=== PATIENT | female | born 1960 | race Caucasian/White ===

== ENCOUNTER → 2019-05-25 | Outpatient (REF) | payer OTHER | LOC: M LAB REF 15:29 | PROVIDERS: ATTEND Otolaryngology | DX: H60.8X1 Other otitis externa, right ear (principal) ==

== ENCOUNTER 2020-12-22 10:03 | Emergency (ER) | payer BC, OTHER ==
[~2020-12-22] VITALS: Ht 149.9 cm; Wt 50.7 kg
[2020-12-22] MEDS ORDERED: LOSA100T50 (10:16)
[2020-12-22] MEDS ORDERED: BYST10TA2 (10:16)
[2020-12-22] MEDS ORDERED: OMEP-218 (10:16)
[2020-12-22] MEDS ORDERED: NS 1,000 ML IV ONE (11:40)
[2020-12-22] MEDS ORDERED: MORPHINE 4 MG/ML 1ML VIAL/SYRINGE (J2270) IV ONE ×2 (11:40→13:20)
[2020-12-22] MEDS ORDERED: ONDANSETRON 4MG/2ML VIAL IV ONE (11:40)
[2020-12-22 12:17] LABS: BASO # 0.1 10^3/uL (0.0-0.2); BASO % 0.6 % (0.0-1.0); EOS # 0.2 10^3/uL (0.0-0.5); EOS % 2.9 % (0.0-3.0); HEMATOCRIT 37.7 % (36.0-47.0); HEMOGLOBIN 12.6 g/dl (12.0-15.5); LYMPH # 1.9 10^3/uL (1.5-5.0); LYMPH % 22.3 % (24.0-44.0); MEAN CORPUSCULAR HEMOGLOBIN 29.1 pg (27.0-33.0); MEAN CORPUSCULAR HGB CONC 33.4 g/dl (32.0-36.5); MEAN CORPUSCULAR VOLUME 87.1 fl (80.0-96.0); MONO # 0.9 10^3/uL (0.0-0.8); MONO % 11.2 % (2.0-8.0); NEUTROPHILS # 5.3 10^3/uL (1.5-8.5); NEUTROPHILS % 62.5 % (36.0-66.0); PLATELET COUNT, AUTOMATED 299 10^3/uL (150-450); RED BLOOD COUNT 4.33 10^6/uL (4.00-5.40); WHITE BLOOD COUNT 8.4 10^3/uL (4.0-10.0)
[2020-12-22 12:36] LABS: ERYTHROCYTE SEDIMENTATION RATE 27 mm/hr (0-30)
[2020-12-22] MEDS ORDERED: ISOVUE-370 76% 100ML VIAL As Ordered ONE (12:36)
[2020-12-22 12:50] LABS: ALBUMIN 3.2 GM/DL (3.2-5.2); ALT/SGPT 17 U/L (12-78); BILIRUBIN,DIRECT < 0.1 MG/DL (0.0-0.2); BILIRUBIN,TOTAL 0.2 MG/DL (0.2-1.0); LIPASE 6859 U/L (73-393); TOTAL PROTEIN 6.9 GM/DL (6.4-8.2)
--- NOTE | 2020-12-22 14:38 | REP ---
INDICATION: pancreatitis, epigastric pain, 20lb weight loss last 4-5 mo. COMPARISON: None. TECHNIQUE: Standard helical technique after the intravenous administration of 100 cc Isovue 370 FINDINGS: dependent subsegmental atelectatic changes are suspected in the right lung base. There no pleural or pericardial effusions. There is mild intrahepatic ductal dilatation likely secondary to the patient's post cholecystectomy state. There is fluid in the lesser sac and anterior pararenal space. In the right posterior pararenal space there is a round 1.6 cm sized low-density well demarcated area which has water density Hounsfield unit readings. There is a 1.4 cm sized low-density nodule in the anterior limb of the right adrenal gland. The spleen, left adrenal gland, and kidneys are within normal limits. The abdominal aorta and para-aortic regions are within normal limits. There is generalized mesenteric congestion and a small amount of free fluid in the pelvis. There is no evidence of free air. Bone window technique throughout the examination shows chronic spinal degenerative changes. IMPRESSION: 1. There is evidence of pancreatitis and possible pseudocyst formation as described above. Follow-up is recommended. 2. Fluid collections as described above. 3. Intrahepatic ductal dilatation likely secondary to the post cholecystectomy state, however, there are no priors comparison. Follow-up is recommended. 4. Other findings as described above. <Electronically signed by Josh Smith > 12/22/20 [id number]
[2020-12-22] MEDS ORDERED: TRAM50TA2 PO (15:31)
[2020-12-22] MEDS ORDERED: ONDA4TAB6 PO (15:31)
[2020-12-22 15:46] VITALS: BP 143/65
== END 2020-12-22 15:52 | disposition home or self-care (01) ==
LOC: M ED 10:03
DX: K86.1 Other chronic pancreatitis (principal); I10 Essential (primary) hypertension; F17.210 Nicotine dependence, cigarettes, uncomplicated; Z88.0 Allergy status to penicillin
CPT/HCPCS: 74177; 80047; 80076; 83690; 85025; 85652; 86140; 96361; 96374; 96375; 96376; 99284; J2270; J2405; Q9967

== ENCOUNTER → 2021-02-08 | Outpatient (CLI) | payer BC, OTHER ==
[~2021-02-08] MED LIST: BYST10TA2; HYDR-4571 PO; LOSA100T50 PO; NEBI10TA PO; OMEP-218 PO; ONDA4TAB6 PO; TRAM50TA2 PO
== END ==
LOC: M LABSMTC 11:12
PROVIDERS: ATTEND Anesthesiology
DX: Z01.818 Encounter for other preprocedural examination (principal); Z11.52 Encounter for screening for COVID-19

== ENCOUNTER 2021-02-10 13:39 | Day surgery (SDC) | payer BC, OTHER ==
[~2021-02-10] VITALS: Ht 149.9 cm; Wt 45.7 kg
[~2021-02-10 13:39] MED LIST changes: +LOSA100T45 PO; -LOSA100T50 PO; +LR 1,000 ML IV ONE; +OMEP-173 PO; -OMEP-218 PO
[2021-02-10] MEDS ORDERED: propofoL 200 MG/20 ML VIAL As Ordered ONE (15:53)
[2021-02-10] MEDS ORDERED: fentaNYL 100 MCG/2 ML INJECTION As Ordered ONE (15:53)
[2021-02-10] MEDS ORDERED: LIDOCAINE 2% 100MG/5ML SDV (FOR ANES.) As Ordered ONE (15:53)
[2021-02-10] MEDS ORDERED: SIMETHICONE 40MG/0.6ML DROPS 30ML As Ordered ONE (16:15)
[2021-02-10 16:50] VITALS: BP 168/76
== END 2021-02-10 16:53 | disposition home or self-care (01) ==
LOC: M SDC 13:39
PROVIDERS: ATTEND Internal Medicine Gastroenterology
DX: Z12.11 Encounter for screening for malignant neoplasm of colon (principal); K64.8 Other hemorrhoids; K57.30 Diverticulosis of large intestine without perforation or abscess without bleeding; K29.70 Gastritis, unspecified, without bleeding; K63.4 Enteroptosis; I10 Essential (primary) hypertension; R12 Heartburn; F17.200 Nicotine dependence, unspecified, uncomplicated; Z88.0 Allergy status to penicillin; Z79.899 Other long term (current) drug therapy
CPT/HCPCS: 43239; 45378; 88305; J3010

== ENCOUNTER 2021-03-12 18:25 | Inpatient (IN) | payer BC, OTHER ==
[~2021-03-12] VITALS: Ht 149.9 cm; Wt 46.2 kg
[~2021-03-12 18:25] MED LIST changes: -LR 1,000 ML IV ONE
[2021-03-12] MEDS ORDERED: POLY17PO18 PO (18:38)
[2021-03-12] MEDS ORDERED: GABA-1171 PO (18:38)
[2021-03-12] MEDS ORDERED: FERR32TA PO (18:38)
[2021-03-12] MEDS ORDERED: [UNRECOGNIZED DRUG - CODE] PO (18:38)
[2021-03-12] MEDS ORDERED: FURO20TA2 PO (18:38)
[2021-03-12] MEDS ORDERED: ONDANSETRON 4MG/2ML VIAL IV ONE (19:00)
[2021-03-12] MEDS: NS 1,000 ML IV SCH (19:30)
[2021-03-12] MEDS: MORPHINE 4 MG/ML 1ML VIAL/SYRINGE (J2270) IV PRN ×3 (19:31→23:27)
[2021-03-12 19:39] LABS: BASO # 0.1 10^3/uL (0.0-0.2); BASO % 0.4 % (0.0-1.0); EOS % 0.1 % (0.0-3.0); HEMATOCRIT 28.8 % (36.0-47.0); HEMOGLOBIN 9.2 g/dl (12.0-15.5); MEAN CORPUSCULAR HEMOGLOBIN 27.2 pg (27.0-33.0); MEAN CORPUSCULAR HGB CONC 31.9 g/dl (32.0-36.5); MEAN CORPUSCULAR VOLUME 85.2 fl (80.0-96.0); MONO % 6.7 % (2.0-8.0); NEUTROPHILS # 23.8 10^3/uL (1.5-8.5); NEUTROPHILS % 85.2 % (36.0-66.0); PLATELET COUNT, AUTOMATED 418 10^3/uL (150-450); RED BLOOD COUNT 3.38 10^6/uL (4.00-5.40)
[2021-03-12 20:02] LABS: ALBUMIN 1.8 GM/DL (3.2-5.2); ALT/SGPT 13 U/L (12-78); BILIRUBIN,TOTAL 0.5 MG/DL (0.2-1.0); BLOOD UREA NITROGEN 9 MG/DL (7-18); CALCIUM LEVEL 7.3 MG/DL (8.5-10.1); CARBON DIOXIDE LEVEL 26 MEQ/L (21-32); CHLORIDE LEVEL 104 MEQ/L (98-107); CREATININE FOR GFR 0.52 MG/DL (0.55-1.30); GLOMERULAR FILTRATION RATE > 60.0 (>51); GLUCOSE, FASTING 90 MG/DL (70-100); LIPASE 3745 U/L (73-393); MAGNESIUM LEVEL 1.3 MG/DL (1.8-2.4); POTASSIUM SERUM 3.8 MEQ/L (3.5-5.1); SODIUM LEVEL 137 MEQ/L (136-145)
[2021-03-12 20:05] LABS: MONO # 1.9 10^3/uL (0.0-0.8)
[2021-03-12] MEDS ORDERED: MAG SULF 1GM/100ML (MAG RUN) 1 GM in IV 1 EA IV ONE ×2 (20:05→21:05)
[2021-03-12] MEDS ORDERED: ISOVUE-370 76% 100ML VIAL As Ordered ONE (20:06)
[2021-03-12] MEDS ORDERED: MOXIFLOXACIN HCL 400 MG in IV 1 EA IV ONE (20:10)
[2021-03-12 20:32] LABS: ETHYL ALCOHOL (ETHANOL) < 0.003 % (0.000-0.010)
[2021-03-12] MEDS ORDERED: HOME MED LIST COMPLETE! XX SCH (21:50)
[2021-03-12 22:02] LABS: RSV AMPLIFICATION NEGATIVE (NEGATIVE)
[2021-03-12] MEDS ORDERED: HEPARIN SOD (PORCINE) 5000UNITS/ML 1ML VIAL/SYRINGE IV ONE (23:05)
[2021-03-12] MEDS ORDERED: HEPARIN DRIP 25,000 UNITS in IV 1 EA IV SCH (23:05)
[2021-03-12 23:29] LABS: ABG BASE EXCESS -1.7 (-2.0-2.0); ABG HCO3 23.5 MEQ/L (22.0-26.0); ABG O2 SATURATION 93.7 % (95.0-99.0); ABG PARTIAL PRESSURE CO2 41.9 mmHg (35.0-45.0); ABG PARTIAL PRESSURE O2 72.1 mmHg (75.0-100.0); ABG TOTAL CO2 24.8 MEQ/L (22.0-29.0); ABG pH (ARTERIAL) 7.367 UNITS (7.350-7.450)
[2021-03-12 23:45] LABS: INR 1.86; PROTHROMBIN TIME 21.9 SECONDS (12.7-14.5)
[2021-03-12 23:47] LABS: PARTIAL THROMBOPLASTIN TIME 59.9 SECONDS (25.9-37.0)
[2021-03-13] VITALS (17 sets, daily range): BP systolic 159–183; BP diastolic 70–86; O2SAT 91–100
[2021-03-13] MEDS ORDERED: HEPARIN SOD (PORCINE) 5000UNITS/ML 1ML VIAL/SYRINGE IV PRN (01:05)
[2021-03-13] MEDS: MORPHINE 4 MG/ML 1ML VIAL/SYRINGE (J2270) IV PRN ×6 (01:13→23:41)
[2021-03-13] MEDS: NS 1,000 ML IV SCH ×3 (01:14→15:35)
[2021-03-13] MEDS: HEPARIN DRIP 25,000 UNITS in IV 1 EA IV SCH (02:03)
[2021-03-13 02:24] LABS: HEMATOCRIT 27.1 % (36.0-47.0); HEMOGLOBIN 8.5 g/dl (12.0-15.5); MEAN CORPUSCULAR HEMOGLOBIN 26.7 pg (27.0-33.0); MEAN CORPUSCULAR HGB CONC 31.4 g/dl (32.0-36.5); MEAN CORPUSCULAR VOLUME 85.2 fl (80.0-96.0); PLATELET COUNT, AUTOMATED 377 10^3/uL (150-450); RED BLOOD COUNT 3.18 10^6/uL (4.00-5.40); WHITE BLOOD COUNT 24.2 10^3/uL (4.0-10.0)
[2021-03-13] MEDS: metroNIDAZOLE 500 MG in IV 1 EA IV SCH ×3 (02:24→18:04)
[2021-03-13] MEDS ORDERED: MORPHINE 4 MG/ML 1ML VIAL/SYRINGE (J2270) As Ordered ONE (02:39)
[2021-03-13] MEDS ORDERED: KETOROLAC 30 MG/ML 1ML VIAL IV ONE ×2 (04:05→13:45)
[2021-03-13 05:39] LABS: HEMATOCRIT 27.4 % (36.0-47.0); HEMOGLOBIN 8.5 g/dl (12.0-15.5); MEAN CORPUSCULAR HEMOGLOBIN 26.4 pg (27.0-33.0); MEAN CORPUSCULAR VOLUME 85.1 fl (80.0-96.0); PLATELET COUNT, AUTOMATED 398 10^3/uL (150-450); RED BLOOD COUNT 3.22 10^6/uL (4.00-5.40); WHITE BLOOD COUNT 22.8 10^3/uL (4.0-10.0)
[2021-03-13 06:07] LABS: ALBUMIN 1.7 GM/DL (3.2-5.2); ALT/SGPT 84 U/L (12-78); BILIRUBIN,TOTAL 0.5 MG/DL (0.2-1.0); BLOOD UREA NITROGEN 8 MG/DL (7-18); CARBON DIOXIDE LEVEL 29 MEQ/L (21-32); CHLORIDE LEVEL 105 MEQ/L (98-107); CREATININE FOR GFR 0.49 MG/DL (0.55-1.30); GLOMERULAR FILTRATION RATE > 60.0 (>51); GLUCOSE, FASTING 88 MG/DL (70-100); POTASSIUM SERUM 3.3 MEQ/L (3.5-5.1); SODIUM LEVEL 140 MEQ/L (136-145); TOTAL PROTEIN 5.4 GM/DL (6.4-8.2)
[2021-03-13] MEDS: CIPROFLOXACIN 400 MG in IV 1 EA IV SCH ×2 (07:33→20:06)
[2021-03-13] MEDS ORDERED: FUROSEMIDE 20 MG TAB PO SCH (09:00)
[2021-03-13] MEDS: LOSARTAN 50MG TABLET PO SCH (09:16)
[2021-03-13] MEDS: GABAPENTIN 100 MG CAP PO SCH ×4 (09:16→23:40)
[2021-03-13] MEDS: OMEPRAZOLE 20MG CAP PO SCH (09:16)
[2021-03-13] MEDS: HYDROMORPHONE HCL 0.5 MG/ 0.5 ML SYRINGE (J1170 PER 1) IV PRN ×3 (11:39→20:08)
[2021-03-13 12:05] LABS: CA 125 240.1 U/ML (<30.2); CA19-9 TUMOR MARKER,CARBOHYDRA 151.9 U/ML (<35.0)
[2021-03-13] MEDS: NICOTINE 21MG/24HR 1 EA TRANSDERMAL TD SCH ×2 (20:08→21:00)
[2021-03-13] MEDS ORDERED: POTASSIUM CHLORIDE 10% LIQ 20 MEQ/15 ML UDC PO ONE (22:15)
[2021-03-14] VITALS (27 sets, daily range): BP systolic 158–186; BP diastolic 60–82; O2SAT 90–100
[2021-03-14 00:02] LABS: APPEARANCE, URINE CLOUDY (CLEAR); BACTERIA, URINE AUTO NEGATIVE (NEGATIVE); BILIRUBIN, URINE AUTO NEGATIVE (NEGATIVE); BLOOD, URINE BLOOD 3+ (NEGATIVE); COLOR, URINE AMBER (YELLOW); GLUCOSE, URINE (UA) AUTO NEGATIVE (NEGATIVE); KETONE, URINE AUTO NEGATIVE (NEGATIVE); LEUKOCYTE ESTERASE, URINE AUTO TRACE (NEGATIVE); MUCUS, URINE SMALL (NEGATIVE); NITRITE, URINE AUTO NEGATIVE (NEGATIVE); PROTEIN, URINE AUTO 2+ mg/dL (NEGATIVE); RBC, URINE AUTO TNTC /HPF (0-3); SPECIFIC GRAVITY URINE AUTO 1.027 (1.002-1.035); SQUAMOUS EPITHELIAL CELL UR AU 6 /HPF (0-6); UROBILINOGEN, URINE AUTO 0.2 mg/dL (0.0-2.0); WBC, URINE AUTO 29 /HPF (0-3)
[2021-03-14] MEDS: metroNIDAZOLE 500 MG in IV 1 EA IV SCH ×3 (01:06→18:20)
[2021-03-14] MEDS: HYDROMORPHONE HCL 0.5 MG/ 0.5 ML SYRINGE (J1170 PER 1) IV PRN ×4 (01:08→21:17)
[2021-03-14] MEDS: MORPHINE 4 MG/ML 1ML VIAL/SYRINGE (J2270) IV PRN ×2 (03:38→08:28)
[2021-03-14 05:23] LABS: HEMATOCRIT 27.4 % (36.0-47.0); HEMOGLOBIN 8.4 g/dl (12.0-15.5); MEAN CORPUSCULAR HEMOGLOBIN 26.7 pg (27.0-33.0); MEAN CORPUSCULAR HGB CONC 30.7 g/dl (32.0-36.5); PLATELET COUNT, AUTOMATED 385 10^3/uL (150-450); RED BLOOD COUNT 3.15 10^6/uL (4.00-5.40); WHITE BLOOD COUNT 16.7 10^3/uL (4.0-10.0)
[2021-03-14 05:46] LABS: ALBUMIN 1.8 GM/DL (3.2-5.2); ALT/SGPT 55 U/L (12-78); BILIRUBIN,TOTAL 0.4 MG/DL (0.2-1.0); BLOOD UREA NITROGEN 6 MG/DL (7-18); CALCIUM LEVEL 7.4 MG/DL (8.5-10.1); CARBON DIOXIDE LEVEL 30 MEQ/L (21-32); CHLORIDE LEVEL 105 MEQ/L (98-107); CREATININE FOR GFR 0.45 MG/DL (0.55-1.30); GLOMERULAR FILTRATION RATE > 60.0 (>51); GLUCOSE, FASTING 87 MG/DL (70-100); LIPASE 255 U/L (73-393); POTASSIUM SERUM 3.3 MEQ/L (3.5-5.1); SODIUM LEVEL 139 MEQ/L (136-145); TOTAL PROTEIN 5.8 GM/DL (6.4-8.2)
[2021-03-14] MEDS ORDERED: POTASSIUM CHLORIDE 10MEQ SR TABLET PO ONE (08:00)
[2021-03-14] MEDS: OMEPRAZOLE 20MG CAP PO SCH (08:31)
[2021-03-14] MEDS: LOSARTAN 50MG TABLET PO SCH (08:31)
[2021-03-14] MEDS: CIPROFLOXACIN 400 MG in IV 1 EA IV SCH ×2 (08:32→20:23)
[2021-03-14] MEDS ORDERED: KCL 10MEQ/100ML SWI (KRUN) 10 MEQ in IV 1 EA IV ONE (08:45)
[2021-03-14] MEDS ORDERED: NALOXONE INJ 0.4MG/1ML VIAL (J2310 PER 1MG) IV PRN (08:55)
[2021-03-14] MEDS ORDERED: atenoloL 25 MG TAB PO SCH (09:00)
[2021-03-14] MEDS ORDERED: SENOKOT S TAB PO PRN (09:00)
[2021-03-14] MEDS ORDERED: MIRALAX *UNIT DOSE* 17GM PACKET PO PRN (09:00)
[2021-03-14 09:02] LABS: LDH LACTATE DEHYDROGENASE 265 U/L (84-246)
[2021-03-14] MEDS: GASTROGRAFIN SOLUTION 30ML PO SCH ×2 (09:02→09:27)
[2021-03-14] MEDS: ISOSORBIDE DIN (ISORDIL) 10MG TAB PO SCH ×3 (09:27→18:20)
[2021-03-14] MEDS: MORPHINE 15 MG SA TAB PO SCH ×2 (09:29→20:23)
[2021-03-14] MEDS ORDERED: PILL CUTTER 1 EACH XX PRN (10:35)
[2021-03-14] MEDS: MORPHINE 30 MG TAB **MSIR PO PRN ×3 (10:44→22:56)
[2021-03-14] MEDS ORDERED: ISOVUE-370 76% 100ML VIAL As Ordered ONE (10:46)
[2021-03-14] MEDS ORDERED: LIDOCAINE 1% MDV 20ML VIAL As Ordered ONE (13:19)
[2021-03-14 14:22] LABS: PH BODY FLUID 7.541 UNITS (NOT ESTABLISHED); SOURCE, BODY FLUID pH PLEURAL
[2021-03-14 14:25] LABS: APPEARANCE, BODY FLUID CLEAR (CLEAR); PLEURAL FL COLOR PALE YELLOW (COLORLESS); SOURCE, BODY FLUID PLEURAL
[2021-03-14 14:51] LABS: AMYLASE, BODY FLUID 303 U/L (NOT ESTABLISHED); CHOLESTEROL, BODY FLUID < 50 MG/DL (NOT ESTABLISHED); LDH, BODY FLUID 196 U/L (NOT ESTABLISHED); SOURCE, BODY FLUID ALBUMIN PLEURAL; SOURCE, BODY FLUID AMYLASE PLEURAL; SOURCE, BODY FLUID CHOL PLEURAL; SOURCE, BODY FLUID GLUCOSE PLEURAL; SOURCE, BODY FLUID LDH PLEURAL; SOURCE, BODY FLUID TOT PROTEIN PLEURAL; SOURCE, BODY FLUID TRIG PLEURAL; TOTAL PROTEIN, BODY FLUID 2.8 G/DL (NOT ESTABLISHED); TRIGLYCERIDE, BODY FLUID 20 MG/DL (NOT ESTABLISHED)
[2021-03-14] MEDS: HEPARIN DRIP 25,000 UNITS in IV 1 EA IV SCH (16:01)
[2021-03-14] MEDS ORDERED: ACETAMINOPHEN TAB 650MG DOSE (2X325MG) PO PRN (16:15)
[2021-03-14 18:16] LABS: HEMATOCRIT 26.4 % (36.0-47.0); HEMOGLOBIN 8.2 g/dl (12.0-15.5)
[2021-03-14] MEDS: NICOTINE 21MG/24HR 1 EA TRANSDERMAL TD SCH (20:23)
[2021-03-14 22:20] LABS: HEMATOCRIT 24.7 % (36.0-47.0); HEMOGLOBIN 7.7 g/dl (12.0-15.5)
[2021-03-15] VITALS (20 sets, daily range): BP systolic 100–189; BP diastolic 67–97; O2SAT 93–100
[2021-03-15] MEDS: HYDROMORPHONE HCL 0.5 MG/ 0.5 ML SYRINGE (J1170 PER 1) IV PRN ×6 (00:38→23:38)
[2021-03-15] MEDS: MORPHINE 30 MG TAB **MSIR PO PRN (02:28)
[2021-03-15] MEDS ORDERED: fentaNYL 100 MCG/2 ML INJECTION IV ONE (02:35)
[2021-03-15] MEDS: metroNIDAZOLE 500 MG in IV 1 EA IV SCH ×3 (02:44→18:44)
[2021-03-15 04:29] LABS: BASO # 0.1 10^3/uL (0.0-0.2); BASO % 0.5 % (0.0-1.0); EOS % 0.2 % (0.0-3.0); HEMATOCRIT 24.9 % (36.0-47.0); HEMOGLOBIN 7.8 g/dl (12.0-15.5); LYMPH # 2.1 10^3/uL (1.5-5.0); MEAN CORPUSCULAR HGB CONC 31.3 g/dl (32.0-36.5); MEAN CORPUSCULAR VOLUME 86.2 fl (80.0-96.0); MONO # 1.4 10^3/uL (0.0-0.8); MONO % 8.9 % (2.0-8.0); NEUTROPHILS # 12.2 10^3/uL (1.5-8.5); PLATELET COUNT, AUTOMATED 361 10^3/uL (150-450); RED BLOOD COUNT 2.89 10^6/uL (4.00-5.40); WHITE BLOOD COUNT 15.9 10^3/uL (4.0-10.0)
[2021-03-15 05:04] LABS: ALBUMIN 1.6 GM/DL (3.2-5.2); ALT/SGPT 33 U/L (12-78); BILIRUBIN,TOTAL 0.3 MG/DL (0.2-1.0); BLOOD UREA NITROGEN 4 MG/DL (7-18); CARBON DIOXIDE LEVEL 25 MEQ/L (21-32); CHLORIDE LEVEL 104 MEQ/L (98-107); CREATININE FOR GFR 0.37 MG/DL (0.55-1.30); GLOMERULAR FILTRATION RATE > 60.0 (>51); GLUCOSE, FASTING 99 MG/DL (70-100); POTASSIUM SERUM 3.2 MEQ/L (3.5-5.1); SODIUM LEVEL 138 MEQ/L (136-145); TOTAL PROTEIN 5.5 GM/DL (6.4-8.2)
[2021-03-15] MEDS: ISOSORBIDE DIN (ISORDIL) 10MG TAB PO SCH (06:20)
[2021-03-15] MEDS ORDERED: atenoloL 50 MG TAB PO ONE (08:00)
[2021-03-15] MEDS: OMEPRAZOLE 20MG CAP PO SCH (08:19)
[2021-03-15] MEDS: CIPROFLOXACIN 400 MG in IV 1 EA IV SCH ×2 (08:19→20:17)
[2021-03-15] MEDS: POTASSIUM CHLORIDE 10MEQ SR TABLET PO SCH ×2 (08:19→20:16)
[2021-03-15] MEDS ORDERED: HYDROMORPHONE HCL 0.5 MG/ 0.5 ML SYRINGE (J1170 PER 1) IV ONE (08:30)
[2021-03-15] MEDS ORDERED: ACETAMINOPHEN TAB 650MG DOSE (2X325MG) PO PRN (08:50)
[2021-03-15] MEDS: hydrALAZINE 20MG/ML 1ML VIAL (J0360 PER 20MG) IV SCH ×4 (09:21→20:17)
[2021-03-15] MEDS ORDERED: LIDOCAINE 1% MDV 20ML VIAL As Ordered ONE (09:39)
[2021-03-15] MEDS ORDERED: SODIUM CHLORIDE 0.9% INJ 10 ML SYR IV PRN (12:40)
[2021-03-15] MEDS ORDERED: HYDROmorphone 2 MG TAB PO ONE (13:15)
[2021-03-15] MEDS ORDERED: NALOXONE INJ 0.4MG/1ML VIAL (J2310 PER 1MG) IV PRN (14:05)
[2021-03-15] MEDS ORDERED: diphenhydrAMINE 50MG/ML VIAL (J1200) IV ONE (14:05)
[2021-03-15] MEDS ORDERED: PERCOCET 5MG/325MG TAB PO ONE (14:05)
[2021-03-15] MEDS ORDERED: KETOROLAC 30 MG/ML 1ML VIAL IV ONE (14:05)
[2021-03-15] MEDS ORDERED: methylPREDNISolone 125MG 2ML VIAL IV ONE (14:10)
[2021-03-15] MEDS ORDERED: hydrOXYzine 25 MG TAB PO PRN (14:10)
[2021-03-15] MEDS: LIDOCAINE 5% (LIDODERM) PATCH TD SCH (15:10)
[2021-03-15] MEDS: SODIUM CHLORIDE 0.9% INJ 10 ML SYR IV SCH (17:08)
[2021-03-15] MEDS: NICOTINE 21MG/24HR 1 EA TRANSDERMAL TD SCH ×2 (20:17→20:27)
[2021-03-15] MEDS: **NOTE PATIENT COMMENT** MISC XX SCH (20:18)
[2021-03-16] VITALS (9 sets, daily range): BP systolic 131–175; BP diastolic 61–81; O2SAT 98–99
[2021-03-16] MEDS: hydrALAZINE 20MG/ML 1ML VIAL (J0360 PER 20MG) IV SCH ×2 (01:00→05:20)
[2021-03-16] MEDS: metroNIDAZOLE 500 MG in IV 1 EA IV SCH ×3 (02:46→17:59)
[2021-03-16] MEDS: HYDROMORPHONE HCL 0.5 MG/ 0.5 ML SYRINGE (J1170 PER 1) IV PRN ×2 (02:47→06:16)
[2021-03-16] MEDS: SODIUM CHLORIDE 0.9% INJ 10 ML SYR IV SCH ×2 (06:17→17:59)
[2021-03-16 06:53] LABS: BASO % 0.1 % (0.0-1.0); HEMATOCRIT 26.5 % (36.0-47.0); HEMOGLOBIN 8.4 g/dl (12.0-15.5); LYMPH # 1.3 10^3/uL (1.5-5.0); LYMPH % 11.4 % (24.0-44.0); MEAN CORPUSCULAR HEMOGLOBIN 26.8 pg (27.0-33.0); MEAN CORPUSCULAR HGB CONC 31.7 g/dl (32.0-36.5); MEAN CORPUSCULAR VOLUME 84.4 fl (80.0-96.0); MONO # 0.6 10^3/uL (0.0-0.8); MONO % 4.9 % (2.0-8.0); NEUTROPHILS # 9.4 10^3/uL (1.5-8.5); NEUTROPHILS % 82.8 % (36.0-66.0); PLATELET COUNT, AUTOMATED 463 10^3/uL (150-450); RED BLOOD COUNT 3.14 10^6/uL (4.00-5.40); WHITE BLOOD COUNT 11.4 10^3/uL (4.0-10.0)
[2021-03-16 07:15] LABS: ALBUMIN 1.9 GM/DL (3.2-5.2); ALT/SGPT 25 U/L (12-78); BILIRUBIN,TOTAL 0.3 MG/DL (0.2-1.0); BLOOD UREA NITROGEN 8 MG/DL (7-18); CALCIUM LEVEL 7.9 MG/DL (8.5-10.1); CARBON DIOXIDE LEVEL 24 MEQ/L (21-32); CHLORIDE LEVEL 104 MEQ/L (98-107); CREATININE FOR GFR 0.51 MG/DL (0.55-1.30); GLOMERULAR FILTRATION RATE > 60.0 (>51); GLUCOSE, FASTING 133 MG/DL (70-100); POTASSIUM SERUM 4.5 MEQ/L (3.5-5.1); SODIUM LEVEL 136 MEQ/L (136-145); TOTAL PROTEIN 5.9 GM/DL (6.4-8.2)
[2021-03-16] MEDS ORDERED: HYDROmorphone 4MG TABLET PO ONE (07:30)
[2021-03-16] MEDS ORDERED: NALOXONE INJ 0.4MG/1ML VIAL (J2310 PER 1MG) IV PRN (07:35)
[2021-03-16] MEDS ORDERED: KETOROLAC 30 MG/ML 1ML VIAL IV ONE ×2 (07:45→18:00)
[2021-03-16] MEDS: ISOSORBIDE DIN (ISORDIL) 10MG TAB PO SCH ×3 (08:58→21:09)
[2021-03-16] MEDS: LIDOCAINE 5% (LIDODERM) PATCH TD SCH (08:59)
[2021-03-16] MEDS: CIPROFLOXACIN 400 MG in IV 1 EA IV SCH ×2 (09:01→21:01)
[2021-03-16] MEDS: **hydrALAZINE** 10 MG TAB PO SCH ×4 (09:02→21:09)
[2021-03-16] MEDS: OMEPRAZOLE 20MG CAP PO SCH (09:02)
[2021-03-16] MEDS: POTASSIUM CHLORIDE 10MEQ SR TABLET PO SCH ×2 (09:02→21:08)
[2021-03-16] MEDS: atenoloL 50 MG TAB PO SCH (09:03)
[2021-03-16] MEDS: oxyCODONE 10 MG CR TAB PO SCH ×2 (10:23→21:00)
[2021-03-16] MEDS: oxyCODONE 5MG TAB PO SCH ×3 (10:28→17:06)
[2021-03-16] MEDS ORDERED: PROMETHAZINE INJ 25 MG/ML VIAL (J2550) IV ONE (11:15)
[2021-03-16] MEDS ORDERED: HYDROmorphone 2 MG TAB PO PRN (12:00)
[2021-03-16] MEDS ORDERED: oxyCODONE 5MG TAB PO ONE (17:40)
[2021-03-16] MEDS ORDERED: BISACODYL 10 MG SUPP PR PRN (17:40)
[2021-03-16] MEDS ORDERED: AMINO AC/ELECTROLYTE/DEX/CALC 2,000 ML IV SCH (18:00)
[2021-03-16] MEDS: HumaLOG INSULIN (NovoLOG) PER UNIT SC SCH (18:00)
[2021-03-16] MEDS ORDERED: FAT EMULSION IV 20% 500 ML IV SCH (18:00)
[2021-03-16] MEDS: NICOTINE 21MG/24HR 1 EA TRANSDERMAL TD SCH (21:00)
[2021-03-16] MEDS: **NOTE PATIENT COMMENT** MISC XX SCH (21:16)
[2021-03-16] MEDS: oxyCODONE 5MG TAB PO PRN (22:53)
[2021-03-17] VITALS (9 sets, daily range): BP systolic 134–187; BP diastolic 66–91; O2SAT 97
[2021-03-17] MEDS: HumaLOG INSULIN (NovoLOG) PER UNIT SC SCH ×4 (00:09→17:07)
[2021-03-17] MEDS: metroNIDAZOLE 500 MG in IV 1 EA IV SCH ×3 (02:58→18:53)
[2021-03-17] MEDS: oxyCODONE 5MG TAB PO PRN ×2 (03:03→07:45)
[2021-03-17] MEDS: SODIUM CHLORIDE 0.9% INJ 10 ML SYR IV SCH ×2 (05:51→18:00)
[2021-03-17 06:10] LABS: BASO % 0.2 % (0.0-1.0); EOS # 0.1 10^3/uL (0.0-0.5); EOS % 0.3 % (0.0-3.0); HEMATOCRIT 23.6 % (36.0-47.0); HEMOGLOBIN 7.3 g/dl (12.0-15.5); LYMPH # 2.6 10^3/uL (1.5-5.0); LYMPH % 14.2 % (24.0-44.0); MEAN CORPUSCULAR HEMOGLOBIN 26.9 pg (27.0-33.0); MEAN CORPUSCULAR HGB CONC 30.9 g/dl (32.0-36.5); MEAN CORPUSCULAR VOLUME 87.1 fl (80.0-96.0); MONO # 1.3 10^3/uL (0.0-0.8); NEUTROPHILS # 13.9 10^3/uL (1.5-8.5); NEUTROPHILS % 77.7 % (36.0-66.0); PLATELET COUNT, AUTOMATED 409 10^3/uL (150-450); RED BLOOD COUNT 2.71 10^6/uL (4.00-5.40); WHITE BLOOD COUNT 17.9 10^3/uL (4.0-10.0)
[2021-03-17] MEDS: ISOSORBIDE DIN (ISORDIL) 10MG TAB PO SCH ×2 (06:14→14:22)
[2021-03-17 06:48] LABS: ALBUMIN 1.8 GM/DL (3.2-5.2); ALT/SGPT 21 U/L (12-78); BILIRUBIN,TOTAL 0.3 MG/DL (0.2-1.0); BLOOD UREA NITROGEN 10 MG/DL (7-18); CALCIUM LEVEL 7.9 MG/DL (8.5-10.1); CARBON DIOXIDE LEVEL 27 MEQ/L (21-32); CHLORIDE LEVEL 107 MEQ/L (98-107); GLOMERULAR FILTRATION RATE > 60.0 (>51); GLUCOSE, FASTING 111 MG/DL (70-100); POTASSIUM SERUM 4.7 MEQ/L (3.5-5.1); SODIUM LEVEL 138 MEQ/L (136-145); TOTAL PROTEIN 5.4 GM/DL (6.4-8.2)
[2021-03-17] MEDS: CIPROFLOXACIN 400 MG in IV 1 EA IV SCH ×2 (07:44→20:50)
[2021-03-17] MEDS ORDERED: ALPRAZolam 0.5 MG TAB PO PRN (07:45)
[2021-03-17 08:23] LABS: HEMATOCRIT 23.4 % (36.0-47.0); HEMOGLOBIN 7.5 g/dl (12.0-15.5)
[2021-03-17 08:48] LABS: ERYTHROCYTE SEDIMENTATION RATE 58 mm/hr (0-30)
[2021-03-17] MEDS: POTASSIUM CHLORIDE 10MEQ SR TABLET PO SCH ×2 (10:03→20:51)
[2021-03-17] MEDS: OMEPRAZOLE 20MG CAP PO SCH (10:03)
[2021-03-17] MEDS: atenoloL 50 MG TAB PO SCH (10:04)
[2021-03-17] MEDS: **hydrALAZINE** 10 MG TAB PO SCH ×3 (10:04→18:36)
[2021-03-17] MEDS: LIDOCAINE 5% (LIDODERM) PATCH TD SCH (10:05)
[2021-03-17] MEDS: oxyCODONE 20 MG CR TAB PO SCH ×2 (10:05→20:53)
[2021-03-17] MEDS ORDERED: ISOVUE-370 76% 100ML VIAL As Ordered ONE (12:34)
[2021-03-17] MEDS: HEPARIN DRIP 25,000 UNITS in IV 1 EA IV SCH (14:21)
[2021-03-17] MEDS: oxyCODONE 5MG TAB PO SCH ×2 (14:23→22:42)
[2021-03-17] MEDS ORDERED: diphenhydrAMINE 50MG/ML VIAL (J1200) IV ONE (15:35)
[2021-03-17] MEDS ORDERED: FLEET ENEMA PR PRN (15:50)
[2021-03-17] MEDS ORDERED: SELENIUM IV SCH ×4 (18:00)
[2021-03-17] MEDS ORDERED: MULTIVITAMIN ADULT IV SCH ×4 (18:00)
[2021-03-17] MEDS ORDERED: COPPER IV SCH ×4 (18:00)
[2021-03-17] MEDS ORDERED: FAT EMULSION IV 20% 500 ML IV SCH (18:00)
[2021-03-17] MEDS ORDERED: ZINC IV SCH ×4 (18:00)
[2021-03-17] MEDS ORDERED: [UNRECOGNIZED DRUG - OTHER] IV SCH ×4 (18:00)
[2021-03-17] MEDS ORDERED: MANGANESE IV SCH ×4 (18:00)
[2021-03-17] MEDS ORDERED: ISOSORBIDE DIN. (ISORDIL) 30 MG TAB PO SCH (18:50)
[2021-03-17] MEDS ORDERED: PROMETHAZINE INJ 25 MG/ML VIAL (J2550) IV PRN (18:55)
[2021-03-17] MEDS ORDERED: **hydrALAZINE HCL** 25 MG TAB PO PRN (18:55)
[2021-03-17] MEDS: ISOSORBIDE DIN. (ISORDIL) 20 MG TAB PO SCH ×2 (19:07→23:34)
[2021-03-17] MEDS ORDERED: FUROSEMIDE 40MG/4ML VIAL (J1940) IV ONE (20:00)
[2021-03-17 20:39] LABS: HEMATOCRIT 28.5 % (36.0-47.0); HEMOGLOBIN 9.2 g/dl (12.0-15.5)
[2021-03-17] MEDS: NICOTINE 21MG/24HR 1 EA TRANSDERMAL TD SCH (20:50)
[2021-03-17] MEDS: **NOTE PATIENT COMMENT** MISC XX SCH (20:54)
[2021-03-17] MEDS ORDERED: BISACODYL 10 MG SUPP PR SCH (21:00)
[2021-03-17] MEDS ORDERED: **hydrALAZINE HCL** 25 MG TAB PO SCH (21:00)
[2021-03-18] MEDS: HumaLOG INSULIN (NovoLOG) PER UNIT SC SCH
[2021-03-18 00:50] VITALS: BP 150/68
[2021-03-18] MEDS ORDERED: FUROSEMIDE 20MG/2ML VIAL (J1940) IV SCH (09:00)
[2021-03-18] MEDS ORDERED: LOVE1INJ SC (10:27)
[2021-03-18] MEDS ORDERED: ALCO1MED31 TP (10:27)
== END 2021-03-18 00:56 | disposition short-term general hospital (02) | DRG 282 ==
LOC: M ED 18:25 → M ED INP 03-13 → ENRESERV 03-13 01:06 → M PCU 03-13 01:40 → M MSPAV 03-16 15:56
PROVIDERS: ADMIT Family Medicine; ATTEND General Practice
PROC: 0W993ZX Drainage of Right Pleural Cavity, Percutaneous Approach, Diagnostic (ICD-10-PCS; 2021-03-14)
PROC: 02HV33Z Insertion of Infusion Device into Superior Vena Cava, Percutaneous Approach (ICD-10-PCS; principal; 2021-03-15 11:00)
PROC: 30233N1 Transfusion of Nonautologous Red Blood Cells into Peripheral Vein, Percutaneous Approach (ICD-10-PCS; 2021-03-17)
DX: K85.20 Alcohol induced acute pancreatitis without necrosis or infection (principal); I82.220 Acute embolism and thrombosis of inferior vena cava; R64 Cachexia; J90 Pleural effusion, not elsewhere classified; D68.69 Other thrombophilia; K21.9 Gastro-esophageal reflux disease without esophagitis; I10 Essential (primary) hypertension; K86.89 Other specified diseases of pancreas; D64.9 Anemia, unspecified; F17.210 Nicotine dependence, cigarettes, uncomplicated; I16.9 Hypertensive crisis, unspecified; Z20.822 Contact with and (suspected) exposure to COVID-19; Z79.899 Other long term (current) drug therapy; Z96.0 Presence of urogenital implants; Z88.0 Allergy status to penicillin